=== PATIENT | female | born 1980 | race Caucasian/White ===

== ENCOUNTER → 2016-06-22 | Outpatient (CLI) | payer OTHER | LOC: US 06-21 14:30 | DX: N93.9 Abnormal uterine and vaginal bleeding, unspecified (principal); N83.202 Unspecified ovarian cyst, left side | CPT/HCPCS: 76830 ==

== ENCOUNTER → 2016-06-27 | Outpatient (CLI) | payer OTHER | LOC: LAB 09:01 | DX: E22.1 Hyperprolactinemia (principal) | CPT/HCPCS: 36415; 84146 ==

== ENCOUNTER → 2020-02-27 | Outpatient (CLI) | payer BC ==
[~2020-02-27] MED LIST: ANDROGEL1.25 GM TD; AUGMENTIN 500-500 MG PO; CETIRIZINE HCL10 MG PO; DIFLUCAN 100 M100 MG PO; ESTRADIOL1 EAC8 TD; FLOVENT DISKUS50 MCG INH; IBUPROFEN600 MG PO; IBUPROFEN800 MG PO; JANUMET 50-1,01 EACH PO; JANUMET XR 1001 EACH PO; LEVAQUIN500 MG PO; NASONEX17 GM; OMEPRAZOLE40 MG PO; OMNICEF 300 MG300 MG PO; PERCOCET 10-321 EACH PO; PREDNISONE10 MG PO; PRILOSEC OTC20 MG PO; PROGESTERONE100 MG PO; RANITIDINE HCL300 MG PO; ROBITUSSIN100 MG/51 PO; SYMBICORT 80-10.2 GM INH; TRULICITY0.75 MG/0. SQ; TRULICITY1.5 MG/0.5 SQ; XYZAL5 MG PO; ZITHROMAX250 MG PO
[2020-02-27 12:55] LABS: HEMOGLOBIN 12.1 gm/dl (12.3-15.3); RED BLOOD COUNT 4.9 M/UL (4.00-5.10); WHITE BLOOD COUNT 7.1 K/UL (4.5-11.0)
[2020-02-27 13:16] LABS: BUN/CREATININE RATIO 17 (0-10)
[2020-02-28 09:16] LABS: FSH, SERUM 17.5 mIU/mL (.)
== END ==
LOC: LAB 11:37
PROVIDERS: Obstetrics & Gynecology
DX: O89 Complications of anesthesia during the puerperium (principal); O99.891 Other specified diseases and conditions complicating pregnancy; M25.50 Pain in unspecified joint; R76.8 Other specified abnormal immunological findings in serum; N91.1 Secondary amenorrhea; N95.1 Menopausal and female climacteric states; Z79.890 Hormone replacement therapy
CPT/HCPCS: 36415; 80053; 83001; 85025; 85652; 86140; 86200

== ENCOUNTER 2021-05-08 21:31 | Emergency (ER) | payer SELFPAY ==
[2021-05-08 22:23] LABS: HEMOGLOBIN 15.8 gm/dl (12.3-15.3); RED BLOOD COUNT 5.64 M/UL (4.00-5.10); WHITE BLOOD COUNT 21.8 K/UL (4.5-11.0)
[2021-05-09] MEDS ORDERED: OMNICEF 300 MG300 MG PO (04:00)
== END 2021-05-09 04:23 | disposition home or self-care (01) ==
LOC: ER1 21:31
PROVIDERS: Student in an Organized Health Care Education/Training Program
DX: N39.0 Urinary tract infection, site not specified (principal); R19.7 Diarrhea, unspecified; E11.9 Type 2 diabetes mellitus without complications; I10 Essential (primary) hypertension
CPT/HCPCS: 80053; 81001; 83690; 85025; 99284; J7030; Q9967

== ENCOUNTER → 2021-11-01 | Outpatient (CLI) | payer BC ==
[2021-11-03 08:13] LABS: FSH 2.7 mIU/mL (.)
[2021-11-05 05:09] LABS: TESTOSTERONE, SERUM 47 ng/dL (4-50)
== END ==
LOC: LAB 14:10
PROVIDERS: Obstetrics & Gynecology
DX: N95.1 Menopausal and female climacteric states (principal); Z79.890 Hormone replacement therapy
CPT/HCPCS: 36415; 82670; 83001; 84402; 84403